=== PATIENT | female | born 1970 | race Caucasian/White ===

== ENCOUNTER 2024-10-19 21:48 | Emergency (ER) | payer MEDICAID, OTHER ==
[~2024-10-19] VITALS: Ht 157.5 cm; Wt 41.0 kg
[~2024-10-19 21:48] MED LIST: FLUO-413 PO; LORA-249 MT; LORA2ORA5 PO; POTA-204 PO; QUET100T PO; QUET50TA PO
[2024-10-19 21:59] VITALS: O2SAT 100
[2024-10-19] MEDS: SODIUM CHLORIDE 0.9% 1,000 ML IV ONE (22:45)
[2024-10-19 23:00] LABS: BASOPHILS % 0.5 % (0.0-2.0); DIFFERENTIAL COMMENT 0; EOSINOPHILS % 0.5 % (0.0-5.0); HEMATOCRIT. 38.8 % (36.0-48.0); HEMOGLOBIN. 12.7 g/dL (12.0-16.0); LYMPHOCYTES % 32.3 % (20.0-50.0); MEAN CORPUSCULAR HEMOGLOBIN 25.6 pg (28.0-32.0); MEAN CORPUSCULAR HGB CONC 32.8 g/dL (31.0-37.0); MEAN PLATELET VOLUME 8.7 fl (7.4-10.4); MONOCYTES % 10.2 % (2.0-8.0); NEUTROPHILS % 56.5 % (40.0-76.0); PLATELET 285 x1000/uL (130-400); RED BLOOD CELL COUNT 4.97 mill/uL (4.2-5.4); RED CELL DISTRIBUTION WIDTH 13.5 % (11.6-14.6); WHITE BLOOD COUNT 7.4 x1000/uL (4.5-11.0)
[2024-10-19 23:07] LABS: CHLORIDE 103 mEq/L (98-107); POTASSIUM 3.7 mEq/L (3.5-5.1); SODIUM 139 mEq/L (136-145)
[2024-10-19 23:08] LABS: CARBON DIOXIDE 28 mEq/L (21-32)
[2024-10-19 23:09] LABS: CALCIUM 9.3 mg/dL (8.7-10.4)
[2024-10-19 23:13] LABS: CREATININE 0.7 mg/dL (0.6-1.0); GLUCOSE 95 mg/dL (70-105)
[2024-10-19 23:15] LABS: TROPONIN I HIGH SENSITIVITY < 4 ng/L (3.0-34)
[2024-10-19 23:17] LABS: UREA NITROGEN BLOOD 16 mg/dL (9-23)
[2024-10-19 23:18] LABS: THYROID STIMULATING HORMONE 2.19 uIU/mL (0.55-4.78)
[2024-10-20] MEDS ORDERED: ACYC200C31 MT (00:45)
[2024-10-20 01:42] VITALS: BP 94/55; PULSE 66; RESP 13; TEMP 37.1; O2SAT 99
== END 2024-10-20 02:13 | disposition home or self-care (01) ==
LOC: ER 21:48
DX: E86.0 Dehydration (principal); F41.9 Anxiety disorder, unspecified; F31.9 Bipolar disorder, unspecified; Z79.899 Other long term (current) drug therapy
CPT/HCPCS: 99284; 96360; 96361; 80048; 83605; 84443; 85025; 84484; 36415; J7030